=== PATIENT | male | born 2000 | race African-American/Black ===

== ENCOUNTER 2020-04-01 14:42 | Outpatient (CLI) | payer OTHER ==
--- NOTE | 2020-04-01 15:11 | RAD ---
Exam: 3 views cervical spine HISTORY: Skull fracture. Cervical spine fracture. COMPARISON: none Correlation: Cervical spine CT 03/09/2020 FINDINGS: On the AP projection, there is no malalignment. On the open-mouth projection, lateral dee s of C1 and C2 articulate appropriately. There is no prevertebral soft tissue swelling. Predental space is normal. Cervical spine vertebral talha dy heights are maintained. There is no vertebral body fracture. Known fracture involving the right facet at C6 is difficult to appreciate radiographically. IMPRESSION: Difficult radiographic appreciation of a known right C6 facet fracture.
--- NOTE | 2020-04-01 15:56 | CT ---
CT BRAIN 04/01/20 PROVIDED CLINICAL HISTORY: Traumatic hemorrhage and skull fracture follow-up. FINDINGS: Comparison 03/10/2020. The ventricular system is unchanged in size and morphology. There is no shift of the midline structur es. Extra-axial fluid collections in the left frontal regions persists, now appearing predominantly h ypodense and associated with calcification involving the smaller and more anterior left frontal extra -axial fluid collection, compatible with expected interval evolution of blood products. No significan t temporal extra-axial fluid is apparent. The basilar cisterns appear patent. Left frontotemporal sku ll fracture appears similar. The extracranial soft tissues and osseous structures appear otherwise un remarkable. IMPRESSION: Expected interval evolution of extra-axial blood products involving the left frontal convexity. POS: [facility]
== END 2020-04-01 14:43 | disposition home or self-care (01) ==
LOC: BICCT 14:42
PROVIDERS: ATTEND Surgery
DX: S12.9XXD Fracture of neck, unspecified, subsequent encounter (principal); S02.91XD Unspecified fracture of skull, subsequent encounter for fracture with routine healing; S06.369D Traumatic hemorrhage of cerebrum, unspecified, with loss of consciousness of unspecified duration, subsequent encounter
CPT/HCPCS: 70450; 72040

== ENCOUNTER 2020-06-22 11:53 | Outpatient (CLI) | payer OTHER ==
--- NOTE | 2020-06-22 12:18 | CT ---
CT head noncontrast HISTORY: Epidural hematoma. Skull fracture. Follow-up. COMPARISON: 04/01/2020. FINDINGS: Extra-axial blood along the left frontal convexity on the prior study is no longer visible. Calcification of the dura at the level of the left frontal epidural hematoma is developing. No new areas of hemorrhage are apparent. Mildly displaced left squamous temporal healing skull fracture evident. There is no mass effect or shift of midline structures. Visualized paranasal sinuses remain well aera sheila. IMPRESSION : Interval resolution of the left frontal extra-axial hemorrhage. Calcification and retraction of the e pidural hematoma. No new abnormalities.
--- NOTE | 2020-06-22 13:28 | RAD ---
3 VIEWS CERVICAL SPINE: Date: 06/22/2020 COMPARISON: 04/01/2020. HISTORY: Re-evaluate cervical spine fracture. FINDINGS: Patient imaged in a cervical collar. Cervical vertebral body height and alignment appears within norm al limits with no prevertebral soft tissue swelling. Open-mouth odontoid view demonstrates a normal a ppearing dens and C1-2 articulation. No interval change when compared to the prior exam. The patient underwent a CT of the cervical spine on 03/09/2020 which revealed a right C6 facet fracture. IMPRESSION: Stable 3 view examination of the cervical spine as detailed above. Fracture of the right C6 facet see n on prior CT cannot be visualized on this examination, which may signify interval healing and/or everett hnique. POS: [facility]
== END 2020-06-22 11:54 | disposition home or self-care (01) ==
LOC: BICCT 11:53
PROVIDERS: ATTEND Surgery
DX: S06.4X9A Epidural hemorrhage with loss of consciousness of unspecified duration, initial encounter (principal); S02.91XA Unspecified fracture of skull, initial encounter for closed fracture; S12.9XXA Fracture of neck, unspecified, initial encounter; M54.2 Cervicalgia
CPT/HCPCS: 70450; 72040